=== PATIENT | male | born 1980 | race Caucasian/White ===

== ENCOUNTER → 2018-08-21 | Outpatient (CLI) | payer OTHER ==
--- NOTE | 2018-08-21 08:02 | US ---
EXAMINATION TYPE: US gallbladder DATE OF EXAM: 08/21/2018 COMPARISON: NONE CLINICAL HISTORY: 38-year-old male K81.9 CHOLECYSTITIS. RUQ pain, Nausea, Diarrhea TECHNIQUE: Multiple sonographic images of the right upper quadrant are obtained. FINDINGS: EXAM MEASUREMENTS: Liver Length: 16.3 cm Gallbladder Wall: 0.2 cm CBD: 0.4 cm CHD: 0.3 cm Right Kidney: 12.3 x 5.3 x 5.5 cm Pancreas: Tail obscured by overlying bowel gas. Visualized portions show no gross abnormality. Liver: wnl Gallbladder: Borderline distended. No abnormal wall thickening, pericholecystic fluid, or shadowing calculi. Evidence for sonographic Luevano's sign: neg CBD: wnl CHD: wnl Right Kidney: No hydronephrosis. IMPRESSION: 1. Borderline distended gallbladder likely relating to fasting state. No cholelithiasis or ancillary findings of acute cholecystitis. 2. No biliary ductal dilatation.
== END | disposition home or self-care (01) ==
LOC: RADUSWWP 06:56
PROVIDERS: ATTEND Physician Assistant
DX: K82.8 Other specified diseases of gallbladder (principal)
CPT/HCPCS: 76705

== ENCOUNTER → 2019-11-12 | Outpatient (CLI) | payer OTHER ==
--- NOTE | 2019-11-12 10:27 | XR ---
EXAMINATION TYPE: XR orbit detect foreign body DATE OF EXAM: 11/12/2019 COMPARISON: NONE HISTORY: Pre-MRI study. Prior work with metal. TECHNIQUE: Complete orbital series with Graham and White view along with lateral view. FINDINGS: No suspicious metallic intraorbital foreign body is seen to prevent MRI study. IMPRESSION: As above.
--- NOTE | 2019-11-12 11:26 | MR ---
EXAMINATION TYPE: MR brain wo con DATE OF EXAM: 11/12/2019 COMPARISON: NONE HISTORY: mild cognitive impairment TECHNIQUE: T1-weighted sagittal, T2, FLAIR, and diffusion axial, and T2 coronal coronal views of the brain are submitted. FINDINGS: There is no evidence of acute ischemia. The ventricles, basal cisterns, and sulci overlying the conv exities are consistent with the patient's age. There is no mass effect. Craniocervical junction maintained. Sella turcica has a normal appearance. Tiny areas of abnormal signal involving the basal ganglia most likely related to prominent Virchow-Ro bin spaces rather than remote lacunar infarcts. No cerebellopontine angle mass. Nasal septal deviation noted with changes of chronic sinusitis. IMPRESSION: 1. No acute intracranial process
== END | disposition home or self-care (01) ==
LOC: RADMRIMAIN 09:39
PROVIDERS: ATTEND Psychiatry & Neurology Neurology
DX: G31.84 Mild cognitive impairment of uncertain or unknown etiology (principal)
CPT/HCPCS: 70030; 70551

== ENCOUNTER 2021-09-01 16:46 | Emergency (ER) | payer OTHER ==
[2021-09-01 18:14] VITALS: TEMP 98.5
[2021-09-01] MEDS ORDERED: HYDROmorphone 0.5 MG/0.5 ML SYRINGE IVP STA (19:32)
[2021-09-01] MEDS ORDERED: ONDANSETRON 4 MG/2 ML VIAL IVP STA (19:32)
[2021-09-01] MEDS ORDERED: SODIUM CHLORIDE 0.9% 1,000 ML IV ONE (19:32)
[2021-09-01] MEDS ORDERED: KETOROLAC 15 MG/ML 1 ML VIAL IVP STA (19:32)
--- NOTE | 2021-09-01 20:01 | ED ---
Skin/Abscess/FB HPI - General Chief complaint: Skin/Abscess/Foreign Body Stated complaint: abscess Time Seen by Provider: 09/01/21 19:17 Source: patient Mode of arrival: ambulatory Limitations: no limitations - History of Present Illness Initial comments: 41 year-old male patient presents to the emergency department for evaluation of "wound" to the buttock. States that he has been having trouble with this since May. States he has been on two rounds of antibiotics. He completed bactrim about 10 days ago. States generally the area is draining but has not for the last two days. States that the area is becoming much more painful. Denies any fever or chills. States the pain is making him nauseated. He denies history of diabetes. Denies history of similar lesions. He denies blood in his stool or painful bowel movements. States he is waiting for the [place] to pair him with a surgeon. Patient denies any recent rash, cough, shortness of breath, chest pa in, abdominal pain, diarrhea, constipation, back pain, numbness, tingling, dizziness, weakness, hematuria, dysuria, urinary urgency, urinary frequency, headache, visual changes, or any other complaints. - Related Data Previous Rx's Medication Instructions Recorded Ibuprofen [Motrin] 600 mg PO Q8HR PRN #30 tab 09/01/21 Sulfamethoxazole/Trimethoprim 2 each PO BID #40 tablet 09/01/21 [Bactrim DS 800-160 mg] Allergies Allergy/AdvReac Type Severity Reaction Status Date / Time No Known Allergies Allergy Verified 09/01/21 18:14 Review of Systems ROS Statement: Those systems with pertinent positive or pertinent negative responses have been documented in the HPI. ROS Other: All systems not noted in ROS Statement are negative. Past Medical History Past Medical History: No Reported History History of Any Multi-Drug Resistant Organisms: None Reported Past Surgical History: No Surgical Hx Reported Past Psychological History: Anxiety, Depression, PTSD Smoking Status: Never smoker Past Alcohol Use History: None Reported Past Drug Use History: Marijuana General Exam Limitations: no limitations General appearance: alert, in no apparent distress, other (This is a well- developed, well-nourished adult male patient in no acute distress. Vital signs upon presentation are temperature 98.5F, pulse 100, respirations 20, blood pressure 141/60, pulse ox 99% on room air.) Eye exam: Present: normal appearance, PERRL, EOMI. Absent: scleral icterus, conjunctival injection, periorbital swelling ENT exam: Present: normal exam, normal oropharynx, mucous membranes moist Respiratory exam: Present: normal lung sounds bilaterally. Absent: respiratory distress, wheezes, rales, rhonchi, stridor Cardiovascular Exam: Present: regular rate, normal rhythm, normal heart sounds. Absent: systolic murmur, diastolic murmur, rubs, gallop, clicks GI/Abdominal exam: Present: soft, normal bowel sounds. Absent: distended, tenderness, guarding, rebound, rigid exam: Present: other (There is an abscess noted to the left lower buttock extending into the perineal region. This is fluctuant, no drainage. There is overlying erythema. No perianal tenderness. No rectal tenderness. No extension to the scrotum.) Neurological exam: Present: alert, oriented X3, CN II-XII intact Psychiatric exam: Present: normal affect, normal mood Skin exam: Present: warm, dry, intact, normal color. Absent: rash Course Vital Signs 09/01/21 09/01/21 09/01/21 18:11 21:38 22:48 Temperature 98.5 F Pulse Rate 100 86 89 Respiratory 20 18 18 Rate Blood Pressure 141/60 129/86 129/86 O2 Sat by Pulse 99 95 95 Oximetry Procedures - Incision & Drainage Consent Obtained: written consent Indication: Abscess Site: other (Perineum) Size (cm): 3 Anesthetic Used: lidocaine 1% Amount (mLs): 10 I&D Cleaning Method: Betadine Scalpel Used: #11 I&D Drainage Obtained: Pus, Blood Packing: Plain Culture Obtained?: Yes Patient Tolerated Procedure: well, no complications Medical Decision Making - Medical Decision Making 41-year-old male patient presents to the emergency department today for evaluation of abscess to the buttock. Physical examination did reveal an abscess over the left lower buttock extending over to the perineal region. No perianal tenderness, no rectal tenderness. He is afebrile, vital signs. Labs reviewed and were unremarkable showed normal white blood cell count. I did drain the abscess and packed with plain gauze. He is started on Bactrim 2 tablets twice daily. He will be discharged SURGERY as he has planned. Return parameters were discussed in detail. He verbalizes understanding and agrees with this plan. Case discussed with my attending Dr. Ravi. - Lab Data Result diagrams: 09/01/21 20:03 09/01/21 20:03 Lab Results 09/01/21 09/01/21 09/01/21 Range/Units 20:03 20:03 20:03 WBC 9.2 (3.8-10.6) k/uL RBC 4.69 (4.30-5.90) m/uL Hgb 13.7 (13.0-17.5) gm/dL Hct 39.0 (39.0-53.0) % MCV 83.1 (80.0-100.0) fL MCH 29.2 (25.0-35.0) pg MCHC 35.1 (31.0-37.0) g/dL RDW 13.7 (11.5-15.5) % Plt Count 324 (150-450) k/uL MPV 7.4 Neutrophils % 67 % Lymphocytes % 24 % Monocytes % 5 % Eosinophils % 2 % Basophils % 0 % Neutrophils # 6.2 (1.3-7.7) k/uL Lymphocytes # 2.2 (1.0-4.8) k/uL Monocytes # 0.5 (0-1.0) k/uL Eosinophils # 0.2 (0-0.7) k/uL Basophils # 0.0 (0-0.2) k/uL Hyperchromasia Slight Sodium 138 (137-145) mmol/L Potassium 4.1 (3.5-5.1) mmol/L Chloride 107 (98-107) mmol/L Carbon Dioxide 23 (22-30) mmol/L Anion Gap 8 mmol/L BUN 14 (9-20) mg/dL Creatinine 0.90 (0.66-1.25) mg/dL Est GFR (CKD-EPI)AfAm >90 (>60 ml/min/1.73 sqM) Est GFR (CKD-EPI)NonAf >90 (>60 ml/min/1.73 sqM) Glucose 100 H (74-99) mg/dL Plasma Lactic Acid Tim 0.9 (0.7-2.0) mmol/L Calcium 9.0 (8.4-10.2) mg/dL Total Bilirubin 0.4 (0.2-1.3) mg/dL AST 35 (17-59) U/L ALT 74 H (4-49) U/L Alkaline Phosphatase 105 (38-126) U/L Total Protein 7.0 (6.3-8.2) g/dL Albumin 4.1 (3.5-5.0) g/dL Disposition Clinical Impression: Left buttock abscess Disposition: HOME SELF-CARE Condition: Good Instructions (If sedation given, give patient instructions): Abscess (ED) Additional Instructions: Leave packing in place for 3 days. Continue warm sitz baths. Take antibiotics as directed. Tylenol Motrin for pain control. Follow-up with the primary care physician and surgeon as you have planned. Return for any new, worsening, or concerning symptoms. Prescriptions: Sulfamethoxazole/Trimethoprim [Bactrim DS 800-160 mg] 2 each PO BID #40 tablet Ibuprofen [Motrin] 600 mg PO Q8HR PRN #30 tab PRN Reason: Pain Is patient prescribed a controlled substance at d/c from ED?: No Referrals: [facility],Clinic [Primary Care Provider] - 1-2 days Time of Disposition: 22:32
[2021-09-01 20:26] LABS: ALT 74 U/L (4-49); AST 35 U/L (17-59); African American GFR (CKD) >90 (>60 ml/min/1.73 sqM); Albumin 4.1 g/dL (3.5-5.0); Alkaline Phosphatase 105 U/L (38-126); Anion Gap 8 mmol/L; Basophils % (A) 0 %; Blood Urea Nitrogen 14 mg/dL (9-20); Carbon Dioxide 23 mmol/L (22-30); Chloride 107 mmol/L (98-107); Eosinophils # (A) 0.2 k/uL (0-0.7); Eosinophils % (A) 2 %; Glucose 100 mg/dL (74-99); HGB 13.7 gm/dL (13.0-17.5); Hyperchromasia Slight; Lymphocytes # (A) 2.2 k/uL (1.0-4.8); Lymphocytes % (A) 24 %; MCH 29.2 pg (25.0-35.0); MCHC 35.1 g/dL (31.0-37.0); MCV 83.1 fL (80.0-100.0); Mean Platelet Volume 7.4; Monocytes # (A) 0.5 k/uL (0-1.0); Monocytes % (A) 5 %; Neutrophils # (A) 6.2 k/uL (1.3-7.7); Neutrophils % (A) 67 %; Non-African American GFR(CKD) >90 (>60 ml/min/1.73 sqM); Platelet Count 324 k/uL (150-450); Potassium 4.1 mmol/L (3.5-5.1); RBC 4.69 m/uL (4.30-5.90); RDW 13.7 % (11.5-15.5); Sodium 138 mmol/L (137-145); Total Bilirubin 0.4 mg/dL (0.2-1.3); WBC 9.2 k/uL (3.8-10.6)
[2021-09-01] MEDS ORDERED: LIDOCAINE 1% INJ 10MG/ML (20 ML MDV) SQ ONE (20:31)
[2021-09-01 21:39] VITALS: BP 129/86; RESP 18
[2021-09-01] MEDS ORDERED: SULFAMETH-TMP DS STARTER PACK 2 TAB BTL PO STA (22:31)
[2021-09-01] MEDS ORDERED: ACET/COD 300 MG/30 MG STARTER PACK 6 TAB BTL PO STA (22:33)
[2021-09-01 22:50] VITALS: PULSE 89
== END 2021-09-01 22:49 | disposition home or self-care (01) ==
LOC: EC 16:46
DX: L02.31 Cutaneous abscess of buttock (principal)
CPT/HCPCS: 10060; 99283; 36415; 80053; 83605; 85025; 87040; 87070; 87205; 87077; 87186; 96361; 96374; 96375; J2405; J2001; J1885; J1170

== ENCOUNTER 2021-09-26 06:41 | Day surgery (SDC) | payer OTHER ==
[2021-09-22 12:01] VITALS: BMI 31.8
[~2021-09-26 06:41] MED LIST: LACTATED RINGERS 1,000 ML IV SCH; LIDOCAINE 1% (10MG/ML) FOR IV START INTRADERMA PRN
[2021-09-26 07:00] VITALS: TEMP 98.4
[2021-09-26] MEDS ORDERED: MIDAZOLAM 2 MG/2 ML VIAL ONE (07:45)
[2021-09-26] MEDS ORDERED: KETAMINE 10 MG/ML 20 ML VIAL ONE (07:45)
[2021-09-26] MEDS ORDERED: PROPOFOL 10 MG/ML 20 ML VIAL IV ONE (07:45)
[2021-09-26] MEDS ORDERED: fentaNYL (PF) 50 MCG/ML 2 ML AMP ONE (07:45)
--- NOTE | 2021-09-26 08:08 | P.PCN ---
Date of Procedure: 09/26/21 Procedure(s) Performed: BRIEF HISTORY: Patient is a 41-year-old pleasant white male scheduled for an elective colonoscopy as a part of evaluation of chronic diarrhea for the last 10 years duration. He was recently diagnosed with the MiraLAX for which she was on antibiotics for a month since then has been having intermittent rectal bleeding. PROCEDURE PERFORMED: Colonoscopy with random biopsy. PREOPERATIVE DIAGNOSIS: Chronic diarrhea for years duration. IV sedation per Anesthesia. PROCEDURE: After informed consent was obtained, the patient, was brought into the endoscopy unit. IV sedation was administered by Anesthesia under continuous monitoring. Digital rectal examination was normal. Initially the Olympus CF-160 flexible video colonoscope was then inserted in the rectum, gradually advanced into the cecum without any difficulty. Careful examination was performed as the scope was gradually being withdrawn. Ileocecal valve and the appendiceal orifice were visualized and appeared normal. Prep was excellent. Terminal ileum was intubated and 20 cm visualized and appeared normal. Biopsies were done from the terminal ileum. Mucosa of the cecum, ascending colon, transverse colon, descending colon, sigmoid colon, and rectum appeared normal. Random biopsies were done from ascending and descending colon to rule out microscopic/collagenous colitis. Scattered sigmoid diverticulosis seen. Retroflexion was performed in the rectum and no lesions were seen. The patient tolerated the procedure well. IMPRESSION: Normal-appearing colon from rectum to cecum with no evidence of colorectal neoplasia. . Scattered sigmoid diverticulosis RECOMMENDATIONS: Findings of this examination were discussed with the patient as well as his family. He was advised to follow with the biopsy results. He'll be seen in office in 2 weeks..
[2021-09-26 08:11] VITALS: RESP 16
[2021-09-26 08:26] VITALS: BP 140/77; PULSE 77
== END 2021-09-26 09:01 | disposition home or self-care (01) ==
LOC: ORWHC2ENDO 06:41
PROVIDERS: ATTEND Internal Medicine Gastroenterology
DX: K52.9 Noninfective gastroenteritis and colitis, unspecified (principal); K57.31 Diverticulosis of large intestine without perforation or abscess with bleeding; K62.5 Hemorrhage of anus and rectum; E78.5 Hyperlipidemia, unspecified; K21.9 Gastro-esophageal reflux disease without esophagitis; Z79.899 Other long term (current) drug therapy
CPT/HCPCS: 88305; 45380; J2250; J3010; J2704

== ENCOUNTER → 2021-09-27 | Outpatient (CLI) | payer OTHER ==
--- NOTE | 2021-09-28 04:31 | MR ---
EXAMINATION TYPE: MR pelvis wo/w con DATE OF EXAM: 09/27/2021 COMPARISON: None HISTORY: Perianal abscess. CONTRAST: Standard multiplanar, multisequence MRI departmental protocol images were obtained without contrast a nd with 11 mL intravenous Gadavist gadolinium contrast. Multiplanar multiecho imaging of the pelvis without and subsequently with intravenous contrast. The pelvic ring is intact. There is no free fluid in the pelvis. Bladder distends smoothly. Prostate is intact. There is no evidence of a mass within the pelvis. The rectum appears normal. There is minimal increased signal in the subcutaneous tissues on the perineum on the left side and an terior to the anus. This could relate to some minimal cellulitis and only measures 6 mm in thickness and 35 mm in length. There is no inguinal adenopathy. The hip joints are intact. There is no hip dysplasia. Sacroiliac gonsalo nts appear normal. IMPRESSION: Superficial inflammatory changes in the perineum on the left of midline anterior to the anus and cons istent with some mild focal cellulitis. No definite drainable fluid collection.
== END | disposition home or self-care (01) ==
LOC: RADMRIMAIN 18:36
PROVIDERS: ATTEND Internal Medicine Gastroenterology
DX: K61.0 Anal abscess (principal)
CPT/HCPCS: 72197; A9585

== ENCOUNTER → 2023-04-16 | Outpatient (CLI) | payer OTHER ==
--- NOTE | 2023-04-21 18:56 | MR ---
EXAMINATION TYPE: MR elbow LT wo con DATE OF EXAM: 04/16/2023 COMPARISON: Radiograph 01/30/2022 HISTORY: 42-year-old male M25.522, Left elbow pain for over 2 years. TECHNIQUE: Multiplanar, multisequence images of the left elbow were obtained without IV contrast. FINDINGS: The distal biceps tendon as well as the triceps insertion appears intact. There is some very mild sof t tissue swelling overlying the olecranon which is nonspecific. The radiocapitellar and ulnotrochlear joints appear intact. No significant joint effusion or chondral defect identified. The common flexor tendon origin pronator mass an underlying UCL appear intact. There is a large intrasubstance tear at the common extensor tendon origin measuring 1.0 cm long by 3 mm wide by 6 mm AP. The underlying RCL and LUCL appear intact. The median neurovascular bundle appears satisfactory. There is some thickening and flattening of the ulnar nerve within the sulcus areas with cross-section al area of 14.5 sq mm that may reflect ulnar neuropathy. Correlate with symptoms. No acute or healing fracture or suspicious bone marrow replacement is seen. Incidental 3.1 x 1.1 x 0.7 cm intramuscular lipoma at the proximal pronator muscle belly. IMPRESSION: 1. Common extensor tendinosis with a large intrasubstance tear measuring 10 x 6 mm. 2. Mild thickening of the ulnar nerve prior to the cubital tunnel may be seen with ulnar neuropathy. Clinically correlate. 3. Incidental 3.1 x 1.1 cm intramuscular lipoma within the proximal pronator teres of questionable cl inical significance.
== END | disposition home or self-care (01) ==
LOC: RADMRIMAIN 06:17
PROVIDERS: ATTEND Orthopaedic Surgery Hand Surgery
DX: M66.221 Spontaneous rupture of extensor tendons, right upper arm (principal)

== ENCOUNTER 2023-06-05 09:53 | Day surgery (SDC) | payer OTHER ==
--- NOTE | 2023-06-04 10:21 | P.HPOR ---
History of Present Illness H&P Date: 06/04/23 Objective: This is a 42 year old male that presents today for follow up evaluation regarding a 2 year history of intermittent left lateral elbow/forearm pain. Patient has been seeing Dr. Lloyd in the past who has performed several steroid injections and he has tried wrist bracing. He states the pain is now back and worsening, he has had 3 injections over the past 2 years with only temporary relief. He recently underwent MRI and his here to discuss results. Physical Examination: LUE: AIN/PIN/Radial/Ulnar/Median motor intact. Radial/Ulnar/Median SILT. 2+/4 Radial/Ulnar pulses palpated. 5/5 APB, 5/5 FDI. Negative Finkelsteins, negative CMC grind, negative Durkan's compression. TTP over ECRB with resisted wrist extension. Elbow ROM 0-130. Imaging: MRI of the left elbow performed on 04/16/2023 demonstrates common extensor tendinosis with a large intrasubstance tear measuring 10 x 6 mm. Impression: 1.) Left lateral epicondylitis Plan: Diagnosis and treatment options were discussed with the patient. We discussed further conservative treatment but after now 2 years of conservative treatment his symptoms are still present. He wishes to go forward with surgical intervention in the form of a left lateral epicondylar debridement with extensor tendon release and possible repair. Risks and benefits of surgery including bleeding, infection, damage to surrounding tissue, need for further surgery, residual numbness were discussed and the patient wished to go forward with surgery. The patient was agreeable with this plan. CC: [facility] Morejon DO Orthopedic Hand/Upper Extremity Surgeon Past Medical History Past Medical History: Hyperlipidemia Additional Past Medical History / Comment(s): PATIENT HAS WEANED HIMSELF OFF OF ALL MEDS. History of Any Multi-Drug Resistant Organisms: None Reported Past Surgical History: Orthopedic Surgery Additional Past Surgical History / Comment(s): eye surgery, finger surgery, testicle surgery Past Anesthesia/Blood Transfusion Reactions: No Reported Reaction Additional Past Anesthesia/Blood Transfusion Reaction / Comment(s): ADOPTED. Past Psychological History: Anxiety, Depression, PTSD Smoking Status: Never smoker Past Alcohol Use History: Occasional Additional Past Alcohol Use History / Comment(s): QUIT ABOUT 16 YRS AGO, .5PPD. Past Drug Use History: Marijuana Additional Drug Use History / Comment(s): EDIBLES - Past Family History Mother Family Medical History: Unable to Obtain Additional Family Medical History / Comment(s): PATIENT IS ADOPTED Medications and Allergies Allergies Allergy/AdvReac Type Severity Reaction Status Date / Time amoxicillin AdvReac Severe Diarrhea Verified 06/03/23 09:14 clavulanic acid AdvReac Diarrhea Verified 06/03/23 09:14 [From Augmentin] Physical Examination Osteopathic Statement: *. No significant issues noted on an osteopathic stru ctural exam other than those noted in the History and Physical/Consult.
[~2023-06-05 09:53] MED LIST changes: +DEXAMETHASONE SOD PHOSPHATE 4 MG/ML 1 ML VIAL IV ONE; +HYDROmorphone 0.5 MG/0.5 ML SYRINGE IVP PRN; +ONDANSETRON 4 MG/2 ML VIAL IVP ONE; +ceFAZolin 3 GM in SODIUM CHLORIDE 0.9% 100 ML IVPB PRN; +droPERidol 5 MG/2 ML VIAL IVP ONE
[2023-06-05] MEDS ORDERED: MIDAZOLAM 2 MG/2 ML VIAL IVP ONE (10:47)
[2023-06-05] MEDS ORDERED: fentaNYL (PF) 50 MCG/ML 2 ML AMP IVP ONE (10:47)
--- NOTE | 2023-06-05 11:09 | P.ANPRN ---
Procedure Note - Anesthesia - Nerve Block Performed Left Supraclavicular Time Out Performed: Yes (10:46) Date of Procedure: 06/05/23 Procedure Start Time: :46 Procedure Stop Time: 10:50 Location of Patient: PreOp Indication: Acute Post-Operative Pain, Requested by Surgeon (Dr Morejon) Sedation Type: Sedate with meaningful contact maintained Preparation: Sterile Prep Position: Supine Catheter: None Needle Types: Pajunk Needle Gauge: Other (see comment) (22g) Ultrasound used to visualize needle placement: Yes Ultrasound used to observe medication spread: Yes Injectate: 0.5% Ropivacaine (see comment for volume) (20cc + decadron 4mg) Blood Aspirated: No Pain Paresthesia on Injection Noted: No Resistance on Injection: Normal Image Stored and Saved: Yes Events: Uneventful and Well Tolerated
[2023-06-05] MEDS ORDERED: LIDOCAINE 2% INJ 20 MG/ML (2 ML VIAL) ONE (11:17)
[2023-06-05] MEDS ORDERED: MIDAZOLAM 2 MG/2 ML VIAL ONE (11:17)
[2023-06-05] MEDS ORDERED: ROPIVACAINE 5 MG/ML 30 ML VIAL ONE (11:17)
[2023-06-05] MEDS ORDERED: DEXAMETHASONE SOD PHOSPHATE 4 MG/ML 1 ML VIAL ONE (11:17)
[2023-06-05] MEDS ORDERED: fentaNYL (PF) 50 MCG/ML 2 ML AMP ONE (11:17)
[2023-06-05] MEDS ORDERED: KETOROLAC 15 MG/ML 1 ML VIAL ONE (11:17)
[2023-06-05] MEDS ORDERED: PROPOFOL 10 MG/ML 20 ML VIAL IV ONE (11:17)
--- NOTE | 2023-06-05 12:13 | P.OP ---
Date of Procedure: 06/05/23 Preoperative Diagnosis: Left elbow lateral epicondylitis Postoperative Diagnosis: Left elbow lateral epicondylitis Procedure(s) Performed: Left elbow lateral epicondylar debridement with repair of extensor tendon at level of elbow Anesthesia: HUGO, regional Surgeon: Hang Morejon Estimated Blood Loss (ml): 0 Pathology: none sent Condition: stable Disposition: PACU Description of Procedure: This is a 43 year old male who presents today for surgical intervention for left lateral epicondylitis that has failed extensive conservative treatment. Risks and benefits of surgery were discussed with the patient including bleeding, damage to surrounding tissue, infection, need for further surgery as well as risks of anesthesia including pulmonary embolism and even and the patient wished to proceed with surgical intervention. The patient was seen in the pre-operative area by myself. Consent and H&P were completed and updated. The correct extremity was marked in the pre-operative area by myself and all other questions were answered. Operative Narrative: The patient was brought to the operating room by the department of anesthesia. They remained on the portable stretcher and a rolling hand table was brought to the side of the operative extremity. Pre-operative time out was performed indicating the correct patient, procedure and laterality. All in the room agreed. Pre-operative antibiotics were given prior to skin incision. The patient was then drifted off to sleep by the department of anesthesia. A nonsterile tourniquet was then applied to the operative extremity and the left upper extremity was then prepped and draped in normal sterile fashion. The operative extremity was the exsanguinated with an esmarch bandage and the tourniquet was inflated to 250mmHg. A longitudinal skin incision was made with a 15 blade scalpel overlying the lateral epicondyle with extension distally. Blunt dissection was taken down to the common extensor tendon origin. This was sharply incised longitudinal and sen retractors were then placed deep to the common extensor tendon which revealed the extensively inflamed and degenerative ECRB tendon origin. The degenerative tissue was then sharply excised. The lateral epicondyle was the decorticated with a rongeur down to bleeding bone taking care to remain anterior to the origin of the LUCL. The wound was then irrigated. A side to side tendon repair was performed utilizing 0 Vicryl suture incorporating the common extensor tendon. The elbow as then stressed with varus and valgus stress and was stable at all degrees of motion. Closure was then performed with 4-0 monocryl suture. A sterile dressing consisting of mastisol, steri strips, 4x4s, webril and an beverly wrap and sling was applied. Tourniquet was let down and the hand had immediate normal perfusion. The patient was then woken by the department of anesthesia and transferred to PACU in stable condition. Hang Morejon D.O. Orthopedic Hand/Upper Extremity Surgeon
[2023-06-05 12:19] VITALS: TEMP 97.3
[2023-06-05 12:33] VITALS: RESP 16
[2023-06-05 13:14] VITALS: BP 133/83; PULSE 92
== END 2023-06-05 13:26 | disposition home or self-care (01) ==
LOC: OR 09:53
PROVIDERS: ATTEND Orthopaedic Surgery Hand Surgery
DX: M77.12 Lateral epicondylitis, left elbow (principal); E78.5 Hyperlipidemia, unspecified; Z98.890 Other specified postprocedural states; F41.9 Anxiety disorder, unspecified; F32.A Depression, unspecified; Z86.59 Personal history of other mental and behavioral disorders; F12.90 Cannabis use, unspecified, uncomplicated; Z88.0 Allergy status to penicillin; Z79.899 Other long term (current) drug therapy
CPT/HCPCS: 64415; 24359; J2250; J1100; J0690; J2405; J3010; J2795; J1885; J2704; J2001

== ENCOUNTER → 2023-07-24 | Outpatient (CLI) | payer OTHER ==
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
== END | disposition home or self-care (01) ==
LOC: RADMRIMAIN 05:51
PROVIDERS: ATTEND Orthopaedic Surgery
DX: S83.241A Other tear of medial meniscus, current injury, right knee, initial encounter (principal); M17.11 Unilateral primary osteoarthritis, right knee

== ENCOUNTER → 2023-08-17 | Outpatient (CLI) | payer OTHER ==
[2023-08-17 13:49] LABS: Basophils # (A) 0.06 X 10*3/uL (0.00-0.10); Basophils % (A) 0.7 %; Eosinophils # (A) 0.06 X 10*3/uL (0.04-0.35); Eosinophils % (A) 0.7 %; HGB 14.4 d/dL (13.0-17.0); Lymphocytes # (A) 2.12 X 10*3/uL (0.90-5.00); Lymphocytes % (A) 23.2 %; MCH 28.4 pg (27.0-32.0); MCHC 34.3 d/dL (32.0-37.0); MCV 82.8 FL (80.0-97.0); Mean Platelet Volume 10.3 FL (9.5-12.2); Monocytes # (A) 0.57 X 10*3/uL (0.20-1.00); Monocytes % (A) 6.3 %; NRBC Per 100 WBC 0 X 10*3/uL (0.00-0.01); Neutrophils # (A) 6.28 X 10*3/uL (1.80-7.70); Neutrophils % (A) 68.8 %; Platelet Count 389 X 10*3/uL (140-440); RBC 5.07 X 10*6/uL (4.40-5.60); RDW 13.9 % (11.5-14.5); WBC 9.12 X 10*3/uL (4.50-10.00)
[2023-08-17 23:21] LABS: Anion Gap 11.1 mmol/L (4.00-12.00); Carbon Dioxide 25.9 mmol/L (21.6-31.8); Potassium 4.5 mmol/L (3.5-5.5)
== END | disposition home or self-care (01) ==
LOC: LABPAT 09:58
PROVIDERS: ATTEND Orthopaedic Surgery
DX: Z01.812 Encounter for preprocedural laboratory examination (principal); M23.91 Unspecified internal derangement of right knee; S83.511A Sprain of anterior cruciate ligament of right knee, initial encounter; Y99.9 Unspecified external cause status
CPT/HCPCS: 80051; 85025

== ENCOUNTER 2023-08-29 07:31 | Day surgery (SDC) | payer OTHER ==
[2023-08-27 10:36] VITALS: BMI 33.7
--- NOTE | 2023-08-28 15:52 | HP ---
HISTORY AND PHYSICAL DATE OF SURGERY: 08/29/2023. HISTORY OF PRESENT ILLNESS: Corbin Castanon is a 43-year-old gentleman, seen with right knee pain and instability consistent with medial meniscal tear and anterior cruciate ligament tear. After discussing treatment options, he elected to proceed with right knee arthroscopy to include partial medial meniscectomy and allograft ACL reconstruction. Consent regarding procedure was obtained. PAST MEDICAL HISTORY: Hyperlipidemia. PAST SURGICAL HISTORY: Eye surgery. DAILY MEDICATIONS: 1. Atorvastatin. 2. Ibuprofen. ALLERGIES: None. SOCIAL HISTORY: He denies current tobacco use. PHYSICAL EVALUATION OF THE RIGHT KNEE: His range of motion is 0 to 130 degrees. Mild effusion. Tenderness, medial joint line. Positive medial Giulia's. +2 Jaime's, soft endpoint. Pivot shift positive. Distal neurovascular exam is intact. IMAGING STUDIES: Right knee radiographs revealed moderate osteoarthritis. MRI right knee revealed medial meniscal tear, anterior cruciate ligament tear, and mild osteoarthritis. IMPRESSION: Internal derangement of right knee with medial meniscal tear and anterior cruciate ligament tear. PLAN: Right knee arthroscopy with partial medial meniscectomy and allograft ACL reconstruction. MMODL / IJN: [id number] /
[~2023-08-29 07:31] MED LIST changes: -DEXAMETHASONE SOD PHOSPHATE 4 MG/ML 1 ML VIAL IV ONE; -HYDROmorphone 0.5 MG/0.5 ML SYRINGE IVP PRN; -LACTATED RINGERS 1,000 ML IV SCH; -LIDOCAINE 1% (10MG/ML) FOR IV START INTRADERMA PRN; -ONDANSETRON 4 MG/2 ML VIAL IVP ONE; -droPERidol 5 MG/2 ML VIAL IVP ONE
[2023-08-29] MEDS ORDERED: ONDANSETRON 4 MG/2 ML VIAL IVP ONE (07:39)
[2023-08-29] MEDS ORDERED: LACTATED RINGERS 1,000 ML IV SCH (07:39)
[2023-08-29] MEDS ORDERED: DEXAMETHASONE SOD PHOSPHATE 4 MG/ML 1 ML VIAL IV ONE (07:39)
[2023-08-29] MEDS ORDERED: MIDAZOLAM 2 MG/2 ML VIAL IVP ONE (08:37)
[2023-08-29] MEDS ORDERED: MIDAZOLAM 2 MG/2 ML VIAL ONE (08:57)
[2023-08-29] MEDS ORDERED: ROPIVACAINE 5 MG/ML 30 ML VIAL ONE (08:57)
[2023-08-29] MEDS ORDERED: ePHEDrine 50 MG/ML 1 ML VIAL ONE (08:57)
[2023-08-29] MEDS ORDERED: DEXAMETHASONE SOD PHOSPHATE 4 MG/ML 1 ML VIAL ONE (08:57)
[2023-08-29] MEDS ORDERED: PHENYLEPHRINE-0.9% NACL SYG 1,000 MCG/10 ML SYRINGE ONE (08:57)
[2023-08-29] MEDS ORDERED: SUCCINYLCHOLINE CHLORIDE 200 MG/10 ML VIAL IV ONE (08:57)
[2023-08-29] MEDS ORDERED: fentaNYL (PF) 50 MCG/ML 2 ML AMP ONE (08:57)
[2023-08-29] MEDS ORDERED: PROPOFOL 10 MG/ML 20 ML VIAL IV ONE (08:57)
[2023-08-29] MEDS ORDERED: LIDOCAINE 1% INJ 10MG/ML (20 ML MDV) ONE (08:57)
[2023-08-29] MEDS ORDERED: LACTATED RINGERS 1,000 ML IV ONE (10:06)
[2023-08-29 11:11] VITALS: TEMP 97.4
[2023-08-29] MEDS: HYDROmorphone 0.5 MG/0.5 ML SYRINGE IVP PRN ×2 (11:14→11:22)
--- NOTE | 2023-08-29 11:14 | P.OP ---
Date of Procedure: 08/29/23 Preoperative Diagnosis: Internal derangement right knee Postoperative Diagnosis: 1. Anterior cruciate ligament tear right knee 2. Medial and lateral meniscal tear right knee 3. Reactive synovitis medial, lateral and suprapatellar compartments right knee Procedure(s) Performed: 1. Arthroscopic allograft anterior cruciate ligament reconstruction right knee 2. Arthroscopic partial medial and lateral meniscectomy right knee right knee 3. Arthroscopic partial synovectomy medial, lateral and suprapatellar compartments right knee Implants: Arthrex 4.75 swivel lock anchor, 2 Arthrex Endobuttons Anesthesia: GETA, local Surgeon: Dylon Lloyd Cutter Barrel Drum #1: Armando Thompson Estimated Blood Loss (ml): 15 Pathology: none sent Condition: stable Disposition: PACU Indications for Procedure: 43-year-old gentleman who was seen with right knee pain and instability consistent with anterior cruciate ligament tear and meniscal tear. After we discussed options, he elected to proceed with arthroscopy to include allograft ACL reconstruction. Operative Findings: See description of procedure Description of Procedure: Patient was taken to the operative suite. Patient underwent a general anesthetic by the department of anesthesia. Patient was given preoperative antibiotics. The right lower extremity was placed in a well-padded arthroscopic leg williamson. The right leg was prepped and draped in the normal sterile orthopedic fashion. A lateral parapatellar and suprapatellar incision was made. Trochars were inserted. Arthroscopy was initiated. Suprapatellar pouch re vealed diffuse thick reactive synovitis. The patellofemoral joint appeared to articulate congruently. There was no significant chondromalacia present.. The scope was guided into the medial gutter. No loose bodies or plica were identified. The scope was then guided into the medial compartment. A medial parapatellar incision was made. Trocar inserted followed by probe. There was a radial tear involving the posterior horn medial meniscus. There was no chondromalacia. There was thick reactive synovitis anteriorly. Scope and probe were then guided into the intercondylar notch. There was a complete ACL tear present. At this point Joseph JIMENEZ opened up a allograft quadriceps tendon and began preparing that for implantation. I guided the scope back into the medial compartment. I performed a partial medial meniscectomy. I performed a partial synovectomy. The residual meniscus was probed and was found to be stable. There was good decompression of the synovitis.. The scope and probe were then guided into lateral compartment. There was a radial tear mid body lateral meniscus. There was thick reactive synovitis anteriorly. There was no chondromalacia. I performed a partial lateral meniscectomy getting down to stable meniscal tissue. I performed a partial synovectomy. The residual meniscus was stable. There was good decompression of the synovitis. I guided the scope back into the intercondylar notch. I debrided out the remaining remnants of the anterior cruciate ligament tear. I performed a notchplasty. At this point the graft had been prepared and Joseph Jay JIMENEZ into the operative field and began assisted me with preparation of the knee for implantation of the graft. I now enlarged the medial portal site and introduced a femoral drill pin utilizing the guide. I now reamed over the pin to create a femoral tunnel. A passing suture was now placed to the tunnel. We now turned our attention to the tibial side. I used the tibial tunnel guide and secured it created all inside tibial tunnel. A shuttle suture was passed through that tunnel was well. We now brought the graft to the operative field. We shuttled the graft into the femoral tunnel introducing the Endobutton flipping it through the cortex. We now pulled some graft into the tunnel. We now pulled the tibial sided graft into the tibial tunnel and pulled well away through. The graft seemed to be placed in good position. We took the leg into full extension. I secured the tibial side of the graft with a Endobutton. That was backed up with a Arthrex 4.75 swivel lock anchors securing our internal brace. Residual suture limbs were clipped. We reinitiated arthroscopy and noted excellent position of the graft. We took the knee through range of motion with full range of motion. There was good intraoperative stability about the knee. All residual suture limbs were clipped. The scope was in guided back into the suprapatellar compartment. I used a motorized shaver and performed a partial synovectomy. Shaver was removed. We had good decompression of synovitis. I took one more look around the entire knee, no residual debris. Instruments were now removed from the joint. The joint was infiltrated with .25% Marcaine. That medial mini incision was repaired with 2-0 Vicryl followed by nylon suture. The portal sites are. Nylon suture. Sterile dressings were applied. The patient was placed into a JULIUS hose. We placed the extremity into a soft long knee immobilizer. No tourniquet was utilized. The patient was awakened, transferred to a bed and taken to recovery stable satisfactory condition. Joseph JIMENEZ assisted in all aspects of this procedure.
[2023-08-29 12:12] VITALS: RESP 16
[2023-08-29] MEDS ORDERED: HYDROcodone/APAP 7.5-325MG 1 EACH TAB ONE (12:13)
[2023-08-29] MEDS ORDERED: HYDROcodone/APAP 7.5-325MG 1 EACH TAB PO ONE (12:15)
[2023-08-29 12:54] VITALS: BP 131/86; PULSE 99
--- NOTE | 2023-08-30 06:41 | P.ANPRN ---
Procedure Note - Anesthesia - Nerve Block Performed Right Adductor Canal Single Time Out Performed: Yes Date of Procedure: 08/29/23 Procedure Start Time: 08:36 Procedure Stop Time: 08:39 Location of Patient: PreOp Indication: Acute Post-Operative Pain, Requested by Surgeon Sedation Type: Sedate with meaningful contact maintained Preparation: Sterile Prep Position: Supine Needle Types: Pajunk Needle Gauge: 21 Ultrasound used to visualize needle placement: Yes Ultrasound used to observe medication spread: Yes Blood Aspirated: No Pain Paresthesia on Injection Noted: No Resistance on Injection: Normal Image Stored and Saved: Yes Events: Uneventful and Well Tolerated (ropi .5% 20cc plus dexamethasone 4mg)
== END 2023-08-29 13:20 | disposition home or self-care (01) ==
LOC: OR 07:31
PROVIDERS: ATTEND Orthopaedic Surgery
DX: S83.511A Sprain of anterior cruciate ligament of right knee, initial encounter (principal); S83.281A Other tear of lateral meniscus, current injury, right knee, initial encounter; M65.861 Other synovitis and tenosynovitis, right lower leg; G89.18 Other acute postprocedural pain; E78.5 Hyperlipidemia, unspecified; Z79.899 Other long term (current) drug therapy; Z98.890 Other specified postprocedural states; X58.XXXA Exposure to other specified factors, initial encounter
CPT/HCPCS: 29880; 29888; 64447; J2250; J1100; J0690; J2405; J1170

== ENCOUNTER 2024-02-12 11:28 | Day surgery (SDC) | payer OTHER ==
--- NOTE | 2024-02-10 13:11 | P.HPOR ---
History of Present Illness H&P Date: 02/10/24 Subjective: This is a 43 year old male that presents today for follow up evaluation regarding a year history of worsening right lateral elbow pain that radiates down the forearm. He has pain with lifting objects and extending the wrist. He has tried several steroid injections with temporary relief of his symptoms. He has a long history of similar symptoms ont the left arm that ultimately lead to a lateral epicondylar debridement which he responded well to several months ofe or. He denies any numbness or tingling. Physical Examination: RUE: AIN/PIN/Radial/Ulnar/Median motor intact. Radial/Ulnar/Median SILT. 2+/4 Radial/Ulnar pulses palpated. 5/5 APB, 5/5 FDI. Negative Finkelsteins, negative CMC grind, negative Durkan's compression. TTP over ECRB origin with pain at lateral epicondyle with resisted wrist extension. Impression: 1.) Right lateral epicondylitis Plan: Diagnosis and treatment options were discussed with the patient. We discussed further conservative treatment but after now a year of conservative treatment his symptoms are still present. He wishes to go forward with surgical intervention in the form of a right lateral epicondylar debridement with extensor tendon release and possible repair. Risks and benefits of surgery including bleeding, infection, damage to surrounding tissue, need for further surgery, residual numbness were discussed and the patient wished to go forward with surgery. The patient was agreeable with this plan. -Hang Morejon DO Orthopedic Hand/Upper Extremity Surgeon Past Medical History Past Medical History: Hyperlipidemia Additional Past Medical History / Comment(s): PATIENT HAS WEANED HIMSELF OFF OF ALL MEDS. History of Any Multi-Drug Resistant Organisms: None Reported Past Surgical History: Orthopedic Surgery Additional Past Surgical History / Comment(s): eye surgery, finger surgery, testicle surgery Past Anesthesia/Blood Transfusion Reactions: No Reported Reaction Additional Past Anesthesia/Blood Transfusion Reaction / Comment(s): ADOPTED. Smoking Status: Never smoker Additional Drug Use History / Comment(s): EDIBLES - Past Family History Mother Family Medical History: Unable to Obtain Additional Family Medical History / Comment(s): PATIENT IS ADOPTED Medications and Allergies Home Medications Medication Instructions Recorded Confirmed Type Cholestyramine (with Sugar) 4 gm PO BID 06/05/23 08/27/23 History [Cholestyramine Packet] Losartan [Cozaar] 25 mg PO HS 06/05/23 02/10/24 History Lovastatin [Mevacor] 10 mg PO HS 06/05/23 02/10/24 History Ibuprofen [Motrin] 800 mg PO Q8H PRN #40 tab 08/29/23 02/10/24 Rx Cholecalciferol (Vitamin D3) 50 mcg PO DAILY 02/10/24 02/10/24 History [Vitamin D3 (50 Mcg = 2000 Iu)] Multivitamin [Multivitamins Adult 1 tab PO DAILY 02/10/24 02/10/24 History Gummies] Allergies Allergy/AdvReac Type Severity Reaction Status Date / Time amoxicillin AdvReac Severe Diarrhea Verified 02/10/24 13:03 clavulanic acid AdvReac Diarrhea Verified 02/10/24 13:03 [From Augmentin] Physical Examination Osteopathic Statement: *. No significant issues noted on an osteopathic structural exam other than those noted in the History and Physical/Consult.
[~2024-02-12 11:28] MED LIST changes: +HYDROmorphone 0.5 MG/0.5 ML SYRINGE IVP PRN; +LACTATED RINGERS 1,000 ML IV SCH; +ONDANSETRON 4 MG/2 ML VIAL IVP ONE; -ceFAZolin 3 GM in SODIUM CHLORIDE 0.9% 100 ML IVPB PRN; +droPERidol 5 MG/2 ML VIAL IVP ONE
[2024-02-12] MEDS: LACTATED RINGERS 1,000 ML IV SCH (13:00)
[2024-02-12] MEDS: DEXAMETHASONE SOD PHOSPHATE 4 MG/ML 1 ML VIAL IV ONE (13:02)
[2024-02-12] MEDS: ONDANSETRON 4 MG/2 ML VIAL IVP ONE (13:02)
[2024-02-12] MEDS: MIDAZOLAM 2 MG/2 ML VIAL IVP ONE (13:12)
[2024-02-12] MEDS: fentaNYL (PF) 50 MCG/ML 2 ML AMP IVP ONE ×2 (13:12→13:18)
--- NOTE | 2024-02-12 13:26 | P.ANPRN ---
Procedure Note - Anesthesia - Nerve Block Performed Right Supraclavicular Single Time Out Performed: Yes Date of Procedure: 02/12/24 Procedure Start Time: 13:11 Procedure Stop Time: 13:20 Location of Patient: PreOp Indication: Acute Post-Operative Pain, Requested by Surgeon Sedation Type: Sedate with meaningful contact maintained Preparation: Sterile Prep Position: Supine Needle Types: Pajunk Needle Gauge: 21 Ultrasound used to visualize needle placement: Yes Ultrasound used to observe medication spread: Yes Injectate: 0.5% Ropivacaine (see comment for volume) (25 mL of 0.5% ropivacaine +4 mg of dexamethasone) Blood Aspirated: No Pain Paresthesia on Injection Noted: No Resistance on Injection: Normal Image Stored and Saved: Yes Events: Uneventful and Well Tolerated
[2024-02-12] MEDS ORDERED: MIDAZOLAM 2 MG/2 ML VIAL ONE (13:29)
[2024-02-12] MEDS ORDERED: HYDROmorphone (PF) 1 MG/ML ONE (13:29)
[2024-02-12] MEDS ORDERED: SUCCINYLCHOLINE CHLORIDE 200 MG/10 ML VIAL IV ONE (13:29)
[2024-02-12] MEDS ORDERED: PROPOFOL 10 MG/ML 20 ML VIAL IV ONE (13:29)
[2024-02-12] MEDS ORDERED: LIDOCAINE 1% INJ 10MG/ML (20 ML MDV) ONE (13:29)
[2024-02-12] MEDS ORDERED: ROPIVACAINE 5 MG/ML 30 ML VIAL ONE (13:29)
[2024-02-12] MEDS ORDERED: fentaNYL (PF) 50 MCG/ML 2 ML AMP ONE (13:29)
[2024-02-12] MEDS ORDERED: DEXAMETHASONE SOD PHOSPHATE 4 MG/ML 1 ML VIAL ONE (13:29)
[2024-02-12] MEDS: ceFAZolin 3 GM in SODIUM CHLORIDE 0.9% 100 ML IVPB PRN (13:33)
[2024-02-12 13:52] VITALS: RESP 16
--- NOTE | 2024-02-12 14:31 | P.OP ---
Date of Procedure: 02/12/24 Preoperative Diagnosis: Right lateral epicondylitis Postoperative Diagnosis: Right lateral epicondylitis Procedure(s) Performed: Right lateral epicondylar debridement with repair of extensor tendon at level of elbow Anesthesia: regional Surgeon: Hang Morejon [employer] Job Titles #1: Alfonzo Condon Estimated Blood Loss (ml): 0 Pathology: none sent Condition: stable Disposition: PACU Description of Procedure: This is a 43 year old male who presents today for surgical intervention for right lateral epicondylitis that has failed extensive conservative treatment. Risks and benefits of surgery were discussed with the patient including bleeding, damage to surrounding tissue, infection, need for further surgery as well as risks of anesthesia including pulmonary embolism and even and the patient wished to proceed with surgical intervention. The patient was seen in the pre-operative area by myself. Consent and H&P were completed and updated. The correct extremity was marked in the pre-operative area by myself and all other questions were answered. Operative Narrative: The patient was brought to the operating room by the department of anesthesia. They remained on the portable stretcher and a rolling hand table was brought to the side of the operative extremity. Pre-operative time out was performed indicating the correct patient, procedure and laterality. All in the room agreed. Pre-operative antibiotics were given prior to skin incision. The patient was then drifted off to sleep by the department of anesthesia. A nonsterile tourniquet was then applied to the operative extremity and the left upper extremity was then prepped and draped in normal sterile fashion. The operative extremity was the exsanguinated with an esmarch bandage and the tourniquet was inflated to 250mmHg. A longitudinal skin incision was made with a 15 blade scalpel overlying the lateral epicondyle with extension distally. Blunt dissection was taken down to the common extensor tendon origin. This was sharply incised longitudinal and sen retractors were then placed deep to the common extensor tendon which revealed the extensively inflamed and degenerative ECRB tendon origin. The degenerative tissue was then sharply excised. The lateral epicondyle was the decorticated with a rongeur down to bleeding bone taking care to remain anterior to the origin of the LUCL. The wound was then irrigated. A side to side tendon repair was performed utilizing 2-0 Vicryl suture incorporating the common extensor tendon. The elbow as then stressed with varus and valgus stress and was stable at all degrees of motion. Closure was then performed with 4-0 monocryl suture. A sterile dressing consisting of steri strips, 4x4s, webril, posterior plaster splint and an beverly wrap and sling was applied. Tourniquet was let down and the hand had immediate normal perfusion. The patient was then woken by the department of anesthesia and transferred to PACU in stable condition. Alfonzo JIMENEZ was present to assist in retraction and manipulation of the extremity. Hang Morejon D.O. Orthopedic Hand/Upper Extremity Surgeon
[2024-02-12 14:40] VITALS: TEMP 97.3
[2024-02-12] MEDS: HYDROmorphone 0.5 MG/0.5 ML SYRINGE IVP PRN (14:45)
[2024-02-12] MEDS: HYDROcodone/APAP 5-325MG 1 EACH TAB ONE (15:30)
[2024-02-12 16:01] VITALS: PULSE 112
[2024-02-12 16:41] VITALS: BP 147/88
== END 2024-02-12 16:35 | disposition home or self-care (01) ==
LOC: OR 11:28
PROVIDERS: ATTEND Orthopaedic Surgery Hand Surgery
DX: M77.11 Lateral epicondylitis, right elbow (principal); E78.5 Hyperlipidemia, unspecified; G89.18 Other acute postprocedural pain; I10 Essential (primary) hypertension; F12.90 Cannabis use, unspecified, uncomplicated; F41.9 Anxiety disorder, unspecified; F32.A Depression, unspecified; F43.10 Post-traumatic stress disorder, unspecified; E66.01 Morbid (severe) obesity due to excess calories; Z79.1 Long term (current) use of non-steroidal anti-inflammatories (NSAID); Z79.899 Other long term (current) drug therapy; Z88.0 Allergy status to penicillin; Z88.1 Allergy status to other antibiotic agents; Z68.35 Body mass index [BMI] 35.0-35.9, adult
CPT/HCPCS: 24359; 64415; J2250; J0330; J1100; J0690; J2405; J2001; J3010; J1170 ×2; J2795; J2704

== ENCOUNTER 2024-08-26 09:14 | Emergency (ER) | payer OTHER ==
[2024-08-26 09:27] VITALS: BP 122/81; PULSE 103; RESP 18; TEMP 97.7
[2024-08-26] MEDS: PROPARACAINE 0.5% OPHTH DROPS 15 ML BTL RIGHT EYE STA (09:36)
[2024-08-26] MEDS: FLUORESCEIN STRIPS 1 MG STRIP RIGHT EYE ONE (09:36)
--- NOTE | 2024-08-26 09:51 | ED ---
Eye Problem HPI - General Chief complaint: Eye Problems Stated complaint: R eye pain Time Seen by Provider: 08/26/24 09:28 Source: patient, RN notes reviewed Mode of arrival: ambulatory Limitations: no limitations - History of Present Illness Initial comments: This is a 44-year-old male who presents to the emergency department for right eye pain. States that he woke up yesterday with pain in the right eye. He noticed this when he tried to apply his contact lens. Denies any injuries that he can recall, however states that he may have scratched it. 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 Denies any difficulty with his vision, headaches, or nausea. MD chief complaint: eye pain - Related Data Home Medications Medication Instructions Recorded Confirmed Cholestyramine (with Sugar) 4 gm PO BID 06/05/23 02/12/24 [Cholestyramine Packet] Losartan [Cozaar] 25 mg PO HS 06/05/23 02/12/24 Lovastatin [Mevacor] 10 mg PO HS 06/05/23 02/12/24 Cholecalciferol (Vitamin D3) 50 mcg PO DAILY 02/10/24 02/12/24 [Vitamin D3 (50 Mcg = 2000 Iu)] Multivitamin [Multivitamins Adult 1 tab PO DAILY 02/10/24 02/12/24 Gummies] Previous Rx's Medication Instructions Recorded Ibuprofen [Motrin] 800 mg PO Q8H PRN #40 tab 08/29/23 HYDROcodone/APAP 5-325MG [Glen 1 tab PO Q6HR PRN 3 Days #18 tab 02/12/24 5-325] Allergies Allergy/AdvReac Type Severity Reaction Status Date / Time amoxicillin AdvReac Severe Diarrhea Verified 02/10/24 13:03 clavulanic acid AdvReac Diarrhea Verified 02/10/24 13:03 [From Augmentin] Review of Systems ROS Statement: Those systems with pertinent positive or pertinent negative responses have been documented in the HPI. ROS Other: All systems not noted in ROS Statement are negative. Past Medical History Past Medical History: Hyperlipidemia Additional Past Medical History / Comment(s): PATIENT HAS WEANED HIMSELF OFF OF ALL MEDS. History of Any Multi-Drug Resistant Organisms: None Reported Past Surgical History: Orthopedic Surgery Additional Past Surgical History / Comment(s): L corneal transplant, finger surgery, testicle surgery Past Anesthesia/Blood Transfusion Reactions: No Reported Reaction Additional Past Anesthesia/Blood Transfusion Reaction / Comment(s): ADOPTED. Past Psychological History: Anxiety, Depression, PTSD Smoking Status: Former smoker Past Alcohol Use History: Occasional Past Drug Use History: None Reported - Past Family History Mother Family Medical History: Unable to Obtain Additional Family Medical History / Comment(s): PATIENT IS ADOPTED General Exam Limitations: no limitations General appearance: alert, in no apparent distress Head exam: Present: atraumatic, normocephalic, normal inspection Eye exam: Present: PERRL, EOMI, other (Small corneal abrasion on the right). Absent: conjunctival injection, periorbital swelling, periorbital tenderness Respiratory exam: Present: normal lung sounds bilaterally. Absent: respiratory distress, wheezes, rales, rhonchi, stridor Cardiovascular Exam: Present: regular rate, normal rhythm, normal heart sounds. Absent: systolic murmur, diastolic murmur, rubs, gallop, clicks Neurological exam: Present: alert, oriented X3, CN II-XII intact Psychiatric exam: Present: normal affect, normal mood Skin exam: Present: warm, dry, intact, normal color. Absent: rash Course Vital Signs 08/26/24 09:23 Temperature 97.7 F Pulse Rate 103 H Respiratory 18 Rate Blood Pressure 122/81 O2 Sat by Pulse 98 Oximetry Medical Decision Making - Medical Decision Making This is a 44-year-old male who presents to the emergency department for right eye pain. Was pt. sent in by a medical professional or institution? @ -No Did you speak to anyone other than the patient for history? @ -No Did you review nursing and triage notes? @ -Yes, and I agree, it is accurate with regards to the patient's symptoms. Were old charts reviewed? @ -No Differential Diagnosis? @ -Differential Eye Pain: Conjuncitivitis (viral, bacterial, allergic), corneal abrasion, foreign body, iritis, uveitis, keratitis, acute angle closure glaucoma, this is not meant to be an all-inclusive list. EKG interpreted by me (3pts min.)? @ -Not obtained X-rays interpreted by me (1pt min.)? @ -Not obtained CT interpreted by me (1pt min.)? @ -Not obtained U/S interpreted by me (1pt. min.)? @ -Not obtained What testing was considered but not performed? (CT, X-rays, U/S, labs)? Why? @ -None What meds were considered but not given? Why? @ -None Did you discuss the management of the patient with other professionals? @ -No Did you reconcile home meds? @ -No Was smoking cessation discussed for >3mins.? @ -No Was critical care preformed (if so, how long)? @ -No Were there social determinants of health that impacted care today? How? (Homelessness, low income, unemployed, alcoholism, drug addiction, transportation, low edu. Level, literacy, decrease access to med. care, correction, rehab)? @ -No Was there de-escalation of care discussed even if they declined? (Discuss DNR or withdrawal of care, Hospice)? @ -No What co-morbidities impacted this encounter? (DM, HTN, Smoking, COPD, CAD, Cancer, CVA, Hep., AIDS, mental health diagnosis, sleep apnea, morbid obesity)? @ -None Was patient admitted / discharged? @ -Discharged. Fluorescein staining performed demonstrating a small corneal a brasion. Tetanus vaccine is up-to-date. Ciprofloxacin and ketorolac eyedrops provided in the emergency department for infectious prophylaxis and pain relief. Advised to use the ciprofloxacin eyedrops as 2 drops to the right eye 4 times daily for 5 days. Information for ophthalmology follow-up provided as well. Patient discharged home in stable condition. Case discussed with ED attending Dr. Robledo. Return precautions reviewed in depth, the patient is instructed to return to the emergency department with any new, worsening, or concerning symptoms. Patient verbalized understanding. Undiagnosed new problem with uncertain prognosis? @ -None Drug Therapy requiring intensive monitoring for toxicity (Heparin, Nitro, Insulin, Cardizem)? @ -None Were any procedures done? @ -None Diagnosis/symptom? @ -Corneal abrasion Acute, or Chronic, or Acute on Chronic? @ -Acute Uncomplicated (without systemic symptoms) or Complicated (systemic symptoms)? @ -Uncomplicated Side effects of treatment? @ -None Exacerbation, Progression, or Severe Exacerbation] @ -Not applicable Poses a threat to life or bodily function? @ -No Disposition Clinical Impression: Corneal abrasion Disposition: HOME SELF-CARE Instructions (If sedation given, give patient instructions): Corneal Abrasion (ED) Additional Instructions: Return to the emergency department with any new, worsening, or concerning symptoms. Apply the ciprofloxacin eyedrops as 2 drops to the right eye 4 times daily for 5 days. Use the ketorolac eyedrops as 1 drop to the right eye up to every 6 hours as needed for discomfort. You can also alternate with ibuprofen and Tylenol as needed for pain relief. Contact the ophthalmology office listed below for a follow-up appointment and reevaluation. Follow up with your primary care provider in 1-2 days. Is patient prescribed a controlled substance at d/c from ED?: No Referrals: [facility],Clinic [Primary Care Provider] - 1-2 days Bigg Rodriguez MD [STAFF PHYSICIAN] - 1-2 days
[2024-08-26] MEDS: CIPROFLOXACIN 0.3% OPHTH SOLN 5 ML BTL RIGHT EYE STA (10:34)
[2024-08-26] MEDS: KETOROLAC 0.5% OPHTH DROPS 5 ML BTL RIGHT EYE STA (10:35)
== END 2024-08-26 10:43 | disposition home or self-care (01) ==
LOC: EC 09:14
DX: S05.01XA Injury of conjunctiva and corneal abrasion without foreign body, right eye, initial encounter (principal); Z87.891 Personal history of nicotine dependence; Z88.0 Allergy status to penicillin; X58.XXXA Exposure to other specified factors, initial encounter
CPT/HCPCS: 99283

== ENCOUNTER 2025-01-14 21:13 | Emergency (ER) | payer OTHER ==
--- NOTE | 2025-01-14 21:36 | ED ---
Recheck HPI - General Source: patient, RN notes reviewed Mode of arrival: ambulatory Limitations: no limitations <Yvette Reyes - Last Filed: 01/14/25 21:35> <Julia Alvarado - Last Filed: 01/15/25 02:59> - General Chief Complaint: Recheck/Abnormal Lab/Rx Stated Complaint: Post-Op Bleeding Time Seen by Provider: 01/14/25 21:30 - History of Present Illness Initial Comments: Quick Note: This is a 44-year-old male who presents to the emergency department for postoperative bleeding. On 01/07 he had surgery at [facility] to have a cyst on top of a fistula removed. States that today the surgical site started bleeding again and he has soaked several towels. Not taking any blood thinners. (Yvette Reyes) Patient is a 44-year-old gentleman presenting today for postop bleeding. Had a cyst removed overlying a perirectal fistula done at [facility] on 01/[address] Brown. Told by his surgeon that the area was left open. Patient has not had any bleeding from the site until this afternoon around 7 PM. Then he began passing large blood clots from the wound and soaked through several towels. Patient endorses mild pain from the incision. No fevers or chills, no shortness of breath, lightheadedness or dizziness. No history of bleeding disorders. Is not on blood thinners. (Julia Alvarado) - Related Data Home Medications Medication Instructions Recorded Confirmed Cholestyramine (with Sugar) 4 gm PO BID 06/05/23 02/12/24 [Cholestyramine Packet] Losartan [Cozaar] 25 mg PO HS 06/05/23 02/12/24 Lovastatin [Mevacor] 10 mg PO HS 06/05/23 02/12/24 Cholecalciferol (Vitamin D3) 50 mcg PO DAILY 02/10/24 02/12/24 [Vitamin D3 (50 Mcg = 2000 Iu)] Multivitamin [Multivitamins Adult 1 tab PO DAILY 02/10/24 02/12/24 Gummies] Previous Rx's Medication Instructions Recorded Ibuprofen [Motrin] 800 mg PO Q8H PRN #40 tab 08/29/23 HYDROcodone/APAP 5-325MG [[place] 1 tab PO Q6HR PRN 3 Days #18 tab 02/12/24 5-325] Allergies Allergy/AdvReac Type Severity Reaction Status Date / Time amoxicillin AdvReac Severe Diarrhea Verified 01/14/25 21:34 clavulanic acid AdvReac Diarrhea Verified 01/14/25 21:34 [From Augmentin] Review of Systems ROS Other: All systems not noted in ROS Statement are negative. <Yvette Reyes - Last Filed: 01/14/25 21:35> ROS Other: All systems not noted in ROS Statement are negative. <Julia Alvarado - Last Filed: 01/15/25 02:59> ROS Statement: Those systems with pertinent positive or pertinent negative responses have been documented in the HPI. Past Medical History Past Medical History: Hyperlipidemia Additional Past Medical History / Comment(s): PATIENT HAS WEANED HIMSELF OFF OF ALL MEDS. History of Any Multi-Drug Resistant Organisms: None Reported Past Surgical History: Orthopedic Surgery Additional Past Surgical History / Comment(s): L corneal transplant, finger surgery, testicle surgery Past Anesthesia/Blood Transfusion Reactions: No Reported Reaction Additional Past Anesthesia/Blood Transfusion Reaction / Comment(s): ADOPTED. Past Psychological History: Anxiety, Depression, PTSD Smoking Status: Former smoker Past Alcohol Use History: Occasional Past Drug Use History: None Reported - Past Family History Mother Family Medical History: Unable to Obtain Additional Family Medical History / Comment(s): PATIENT IS ADOPTED <Yvette Reyes - Last Filed: 01/14/25 21:35> General Exam Limitations: no limitations <Yvette Reyes - Last Filed: 01/14/25 21:35> <Julia Alvarado - Last Filed: 01/15/25 02:59> - General Exam Comments Initial Comments: Visual Physical Exam Vital signs reviewed General: Well-appearing, nontoxic, no acute distress. Head: Normocephalic, atraumatic Eyes: PERRLA, EOMI ENT: Airway patent Chest: Nonlabored breathing Skin: No visual rash, normal skin tone Neuro: Alert and oriented 3 Musculoskeletal: No gross abnormalities (Yvette Reyes) PE: CONSTITUTIONAL: No apparent distress, well appearing SKIN: Warm, dry, no jaundice, hives or petechiae/ curvilinear open wound approx 2-3 cm at the medial aspect of the left glute just lateral to the rectum. Large dark red clot present, no pulsatile or brisk bleeding. Bleeding appears to have stopped at this time. No fluctuance or erythema. EYES: Pupils are equally round, extraocular movements intact without nystagmus, clear conjunctiva, non-icteric sclera HENT: Normocephalic, atraumatic, moist mucus membranes, oropharynx clear without exudates NECK: , Full range of motion, normal appearance PULMONARY: Clear to auscultation without wheezes, rhonchi, or rales, normal excursion, no accessory muscle use and no stridor CARDIOVASCULAR: Regular rate, rhythm, normal S1 and S2. No appreciated murmurs, rubs or gallops. Strong radial pulses with intact distal perfusion. No lower extremity edema GASTROINTESTINAL: Soft, active bowel sounds throughout, non-tender, non- distended, no palpable masses, no rebound or guarding. No hepatosplenomegaly GENITOURINARY: Skin exam as above, performed NADYA Abarca as wage conciliator MUSCULOSKELETAL: Extremities have no gross deformity NEUROLOGIC:_a/o x 3, GCS 15, normal mentation and speech. Moves all extremities x 4 without motor or sensory deficit PSYCHIATRIC:_normal mood and affect, thought process is clear and linear (Julia Alvarado) Course Vital Signs 01/14/25 21:31 Temperature 98.4 F Pulse Rate 124 H Respiratory 18 Rate Blood Pressure 137/85 O2 Sat by Pulse 94 L Oximetry Medical Decision Making <Yvette Reyes - Last Filed: 01/14/25 21:35> - Lab Data Result diagrams: 01/14/25 22:12 01/14/25 22:12 <Julia Alvarado - Last Filed: 01/15/25 02:59> - Medical Decision Making I performed the QuickNote portion of this chart. Signed Yvette Reyes PA-C. (Yvette Reyes) Was pt. sent in by a medical professional or institution ([facility], [employer], urgent care, hospital, or alf...) When possible be specific @ -[No] Did you speak to anyone other than the patient for history (EMS, parent, family, police, friend...)? What history was obtained from this source @ -[No] Did you review nursing and triage notes (agree or disagree)? Why? @ -[I reviewed nursing and triage notes] Were old charts reviewed (outside hosp., previous admission, EMS record, old EKG, old radiological studies, urgent care reports/EKG's, alf records)? Report findings @ -[Medical records reviewed] Differential Diagnosis (chest pain, altered mental status, abdominal pain women, abdominal pain men, vaginal bleeding, weakness, fever, dyspnea, syncope, headache, dizziness, GI bleed, back pain, seizure, CVA, palpatations, mental health, musculoskeletal)? @Differential diagnosis was broad over top considerations include abscess, wound dehiscence, DIC, is not inclusive list EKG interpreted by me (3pts min.). @ -[As above] X-rays interpreted by me (1pt min.). @ -[None done] CT interpreted by me (1pt min.). @ -[None done] U/S interpreted by me (1pt. min.). @ -[None done] What testing was considered but not performed or refused? (CT, X-rays, U/S, labs)? Why? @ -CT of the abdomen pelvis was considered however patient had no trauma to the region, has no brisk bleeding or signs of arterial bleeding, bleeding appears superficial patient currently in stable condition What meds were considered but not given or refused? Why? @ -[None] Did you discuss the management of the patient with other professionals (professionals i.e. , PA, [employer], lab, RT, psych nurse, social group worker, inbound telemarketer, teacher, financial aid officer, manager case)? Give summary @ -[No] Was smoking cessation discussed for >3mins.? @ -[No] Was critical care preformed (if so, how long)? @ -[No] Were there social determinants of health that impacted care today? How? (Homelessness, low income, unemployed, alcoholism, drug addiction, transportation, low edu. Level, literacy, decrease access to med. care, [place] [facility], rehab)? @ -[No] Was there de-escalation of care discussed even if they declined (Discuss DNR or withdrawal of care, Hospice)? @ -[No] What co-morbidities impacted this encounter? (DM, HTN, Smoking, COPD, CAD, Cancer, CVA, ARF, Chemo, Hep., AIDS, mental health diagnosis, sleep apnea, morbid obesity)? @ -[None] Was patient admitted / discharged? Hospital course, mention meds given and route, prescriptions, significant lab abnormalities, going to OR and other pertinent info. @ -Transfer to [facility]-is a pleasant 44-year-old gentleman presenting today for postop bleeding. 1 week ago had a cyst removed from an overlying perirectal fistula by Dr. Westbrook at [facility]. States bleeding started at 7 PM this afternoon. Has had multiple clots and soaked small towels. Not on blood thinners. Vital signs on arrival show heart rate 124, pulse ox 94% blood pressure 137/85 respiratory 18 temp 98.4. Patient was initially seen in the waiting room due to boarding care with Emergency Department limiting bed availability.I reviewed ordered labs, significant for mild leukocytosis white blood cell count 12.7, neutrophils 9.8%, coagulation studies within normal limits, hemoglobin of 14.1, CMP remarkable for ALT 82 glucose 145 otherwise unremarkable. On my assessment patient is resting comfortably. Rectal exam performed with RNRima at bedside, shows large dark red clots, removed, curvilinear wound along the leftglute just lateral to the rectum, dark red blood present without pulsatile or brisk bleeding. No persistent bleeding. Area was packed. Patient given IV fluids and pain control. Discussed plan for transfer to where pt's surgeon will be able to see him, attempted transfer to [facility] however apparently this was done as an outpatient procedure, and patient will require transfer to [facility]. Case discussed with Dr. Colin, [place] [facility], kindly accepts patient for transfer. Updated patient to plan of care. He is agreeable comfortable plan. Patient will be transferred via ambulance. Undiagnosed new problem with uncertain prognosis? @ -[No] Drug Therapy requiring intensive monitoring for toxicity (Heparin, Nitro, Insulin, Cardizem)? @ -[No] Were any procedures done? @ -[No] Diagnosis/symptom? @Postop bleeding Acute, or Chronic, or Acute on Chronic? @Acute Uncomplicated (without systemic symptoms) or Complicated (systemic symptoms)? @ -Uncomplicated Side effects of treatment? @ -[No] Exacerbation, Progression, or Severe Exacerbation? @ -[No] Poses a threat to life or bodily function? How? (Chest pain, USA, PR, pneumonia, PE, COPD, DKA, ARF, appy, cholecystitis, CVA, Diverticulitis, Homicidal, Suicidal, threat to staff... and all critical care pts) @ -[No] (Julia Alvarado) - Lab Data Lab Results 01/14/25 01/14/25 01/14/25 Range/Units 22:12 22:12 22:12 WBC 12.7 H (3.8-10.6) k/uL RBC 5.05 (4.30-5.90) m/uL Hgb 14.1 (13.0-17.5) gm/dL Hct 42.3 (39.0-53.0) % MCV 83.7 (80.0-100.0) fL MCH 27.9 (25.0-35.0) pg MCHC 33.3 (31.0-37.0) g/dL RDW 13.5 (11.5-15.5) % Plt Count 424 (150-450) k/uL MPV 7.1 Neutrophils % 77 % Lymphocytes % 15 % Monocytes % 4 % Eosinophils % 2 % Basophils % 0 % Neutrophils # 9.8 H (1.3-7.7) k/uL Lymphocytes # 1.9 (1.0-4.8) k/uL Monocytes # 0.6 (0-1.0) k/uL Eosinophils # 0.3 (0-0.7) k/uL Basophils # 0.1 (0-0.2) k/uL PT 10.9 (10.0-12.5) sec INR 1.0 (<1.2) APTT 22.7 (22.0-30.0) sec Sodium 140 (137-145) mmol/L Potassium 4.4 (3.5-5.1) mmol/L Chloride 105 (98-107) mmol/L Carbon Dioxide 24 (22-30) mmol/L Anion Gap 11 mmol/L BUN 10 (9-20) mg/dL Creatinine 0.96 (0.66-1.25) mg/dL Est GFR (CKD-EPI)AfAm >90 (>60 ml/min/1.73 sqM) Est GFR (CKD-EPI)NonAf >90 (>60 ml/min/1.73 sqM) Glucose 145 H (74-99) mg/dL Plasma Lactic Acid Tim (0.7-2.0) mmol/L Calcium 9.6 (8.4-10.2) mg/dL Total Bilirubin 0.5 (0.2-1.3) mg/dL AST 28 (17-59) U/L ALT 82 H (4-49) U/L Alkaline Phosphatase 94 (38-126) U/L Total Protein 7.7 (6.3-8.2) g/dL Albumin 4.7 (3.5-5.0) g/dL 01/14/25 Range/Units 22:12 WBC (3.8-10.6) k/uL RBC (4.30-5.90) m/uL Hgb (13.0-17.5) gm/dL Hct (39.0-53.0) % MCV (80.0-100.0) fL MCH (25.0-35.0) pg MCHC (31.0-37.0) g/dL RDW (11.5-15.5) % Plt Count (150-450) k/uL MPV Neutrophils % % Lymphocytes % % Monocytes % % Eosinophils % % Basophils % % Neutrophils # (1.3-7.7) k/uL Lymphocytes # (1.0-4.8) k/uL Monocytes # (0-1.0) k/uL Eosinophils # (0-0.7) k/uL Basophils # (0-0.2) k/uL PT (10.0-12.5) sec INR (<1.2) APTT (22.0-30.0) sec Sodium (137-145) mmol/L Potassium (3.5-5.1) mmol/L Chloride (98-107) mmol/L Carbon Dioxide (22-30) mmol/L Anion Gap mmol/L BUN (9-20) mg/dL Creatinine (0.66-1.25) mg/dL Est GFR (CKD-EPI)AfAm (>60 ml/min/1.73 sqM) Est GFR (CKD-EPI)NonAf (>60 ml/min/1.73 sqM) Glucose (74-99) mg/dL Plasma Lactic Acid Tim 1.3 (0.7-2.0) mmol/L Calcium (8.4-10.2) mg/dL Total Bilirubin (0.2-1.3) mg/dL AST (17-59) U/L ALT (4-49) U/L Alkaline Phosphatase (38-126) U/L Total Protein (6.3-8.2) g/dL Albumin (3.5-5.0) g/dL Disposition <Yvette Reyes - Last Filed: 01/14/25 21:35> - Out of Hospital Transfer - Req. Specs Out of Hospital Transfer - Requested Specifics: Other Emergency Center ([facility]) <Julia Alvarado - Last Filed: 01/15/25 02:59> Clinical Impression: Post-op bleeding Disposition: OTHER INSTITUTION NOT DEFINED Condition: Stable Referrals: Silas De Leon DO [Primary Care Provider] - 1-2 days
[2025-01-14 22:28] LABS: Basophils # (A) 0.1 k/uL (0-0.2); Basophils % (A) 0 %; Eosinophils # (A) 0.3 k/uL (0-0.7); Eosinophils % (A) 2 %; HCT 42.3 % (39.0-53.0); HGB 14.1 gm/dL (13.0-17.5); Lymphocytes # (A) 1.9 k/uL (1.0-4.8); Lymphocytes % (A) 15 %; MCH 27.9 pg (25.0-35.0); MCHC 33.3 g/dL (31.0-37.0); MCV 83.7 fL (80.0-100.0); Mean Platelet Volume 7.1; Monocytes # (A) 0.6 k/uL (0-1.0); Monocytes % (A) 4 %; Neutrophils # (A) 9.8 k/uL (1.3-7.7); Neutrophils % (A) 77 %; Platelet Count 424 k/uL (150-450); RBC 5.05 m/uL (4.30-5.90); RDW 13.5 % (11.5-15.5); WBC 12.7 k/uL (3.8-10.6)
[2025-01-14 22:43] LABS: ALT 82 U/L (4-49); AST 28 U/L (17-59); African American GFR (CKD) >90 (>60 ml/min/1.73 sqM); Albumin 4.7 g/dL (3.5-5.0); Alkaline Phosphatase 94 U/L (38-126); Anion Gap 11 mmol/L; Blood Urea Nitrogen 10 mg/dL (9-20); Calcium 9.6 mg/dL (8.4-10.2); Carbon Dioxide 24 mmol/L (22-30); Chloride 105 mmol/L (98-107); Glucose 145 mg/dL (74-99); Non-African American GFR(CKD) >90 (>60 ml/min/1.73 sqM); Potassium 4.4 mmol/L (3.5-5.1); Sodium 140 mmol/L (137-145); Total Bilirubin 0.5 mg/dL (0.2-1.3); Total Protein 7.7 g/dL (6.3-8.2)
[2025-01-14 22:53] LABS: Partial Thromboplastin Time 22.7 sec (22.0-30.0); Prothrombin Time 10.9 sec (10.0-12.5)
[2025-01-15] MEDS: SODIUM CHLORIDE 0.9% 1,000 ML IV ONE (01:25)
[2025-01-15] MEDS: MORPHINE SULFATE 4 MG/ML SYRINGE IVP STA (01:26)
[2025-01-15] MEDS: ONDANSETRON 4 MG/2 ML VIAL IVP STA (01:26)
[2025-01-15 02:57] VITALS: BP 114/82; PULSE 109; RESP 20; TEMP 98
[2025-01-15] MEDS: TRANEXAMIC ACID 1,000 MG/10 ML VIAL MISCELLANE ONE (03:25)
[2025-01-15] MEDS: SODIUM CHLORIDE 0.9% 500 ML 500 ML IV ONE (03:26)
== END 2025-01-15 03:27 | disposition other institution (70) ==
LOC: EC 21:13
DX: N99.821 Postprocedural hemorrhage of a genitourinary system organ or structure following other procedure (principal); Z87.891 Personal history of nicotine dependence; Z88.0 Allergy status to penicillin; Z88.1 Allergy status to other antibiotic agents
CPT/HCPCS: 36415; 80053; 83605; 85025; 85610; 85730; 99284; 96374; 96375; 96361 ×2; J2270; J2405